=== PATIENT | male | born 1960 | race Caucasian/White ===

== ENCOUNTER 2019-11-13 15:49 | Emergency (ER) | payer BC ==
[~2019-11-13] VITALS: Ht 182.9 cm; Wt 119.3 kg
[2019-11-13 15:59] VITALS: Ht 182.9 cm; Wt 119.3 kg
[2019-11-13] MEDS ORDERED: [UNRECOGNIZED DRUG - REMARK] (16:00)
[2019-11-13] MEDS ORDERED: CLEOCIN HCL300 MG PO (16:08)
[2019-11-13 16:26] VITALS: BP 157/97
== END 2019-11-13 16:26 | disposition home or self-care (01) ==
LOC: D.ER 15:49
DX: M27.69 Other endosseous dental implant failure (principal); S02.5XXA Fracture of tooth (traumatic), initial encounter for closed fracture; I10 Essential (primary) hypertension